=== PATIENT | female | born 1930 | race Caucasian/White ===

== ENCOUNTER 2018-10-08 11:38 | Outpatient (CLI) | payer BC | END 2018-10-08 20:35 | disposition home or self-care (01) | LOC: SMA 11:38 | PROVIDERS: ATTEND Family Medicine | DX: R92.8 Other abnormal and inconclusive findings on diagnostic imaging of breast (principal); Z85.3 Personal history of malignant neoplasm of breast; Z90.12 Acquired absence of left breast and nipple | CPT/HCPCS: 76641; 77066 ==